=== PATIENT | female | born 1980 | race Caucasian/White ===

== ENCOUNTER 2023-07-20 20:35 | Emergency (ER) | payer BC, SELFPAY ==
[2023-07-20 21:07] VITALS: BP 146/93; PULSE 96; RESP 16; TEMP 36.6; O2SAT 100
--- NOTE | 2023-07-20 23:45 | PC.NURSE ---
Patients visitor comes to desk to state we haven't been seen by a doctor yet. Patients visitor informed that the provider will be with them as soon as he can.
[2023-07-20 23:47] VITALS: BP 132/89; PULSE 99; RESP 20; TEMP 36.8; O2SAT 100
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
--- NOTE | 2023-07-21 00:03 | PC.NURSE ---
2345 When this RN enters room, patient had removed her c-collar on her own, it was making me itch and I may be allergic to it. ERP was also in room at this time. [id number] Patient and her visitor state she wants to leave AMA. Patient states I don't want to wait here any longer, I have waited long enough. I have many allergies and I don't have my charts here, we are from out of town. Patient refusing any imaging, refusing any medications. Patient informed of the risks of leaving before imaging or testing being done and benefits of staying to be evaluated. Patient a/ox4 and refusing care. Patient and her visitor verbalized understanding of risks of leaving AMA including and paralysis. Patient signed AMA form.
== END 2023-07-21 00:15 | disposition left against medical advice (07) ==
PROVIDERS: Emergency Provider Emergency Medicine
DX: S19.9XXA Unspecified injury of neck, initial encounter (principal); V43.52XA Car driver injured in collision with other type car in traffic accident, initial encounter
CPT/HCPCS: 99282